=== PATIENT | male | born 2005 | race African-American/Black ===

== ENCOUNTER 2025-06-18 19:33 | Inpatient (IN) | payer MEDICAID ==
[~2025-06-18] VITALS: Ht 154.9 cm; Wt 49.9 kg
[2025-06-18 22:10] LABS: COVID AG,FIA SOURCE NASAL SWAB
[2025-06-18 22:12] LABS: PLATELET COUNT (AUTO) 238 K/uL (150-450); RED BLOOD CELL COUNT(AUTO) 4.86 MIL/uL (4.50-5.90); RED CELL DISTRIBUTION WIDTH 14.8 % (11.5-14.5); WHITE BLOOD COUNT (AUTO) 14.1 K/uL (4.5-11.0)
[2025-06-18 22:20] LABS: CALCIUM, TOTAL 9.1 mg/dL (8.8-10.5); CREATININE 1.14 mg/dL (0.60-1.30); GLOMERULAR FILTR. RATE CALC > 60 mL/min (>60); GLUCOSE,RANDOM 108 mg/dL (70-110); SODIUM SERUM 139 mmol/L (136-145); UREA NITROGEN, BLOOD 14 mg/dL (7-18)
[2025-06-18 22:21] LABS: ALCOHOL, BLOOD (SERUM) < 3 mg/dL (0-10)
[2025-06-18 22:25] LABS: ASPARTATE AMINOTRANSFERASE 127 U/L (15-37); TOTAL PROTEIN, SERUM 7.8 g/dL (6.4-8.2)
[2025-06-18 22:27] LABS: SARS-COV2 (COVID) ANTIGEN,FIA Negative (Negative)
[2025-06-19 00:33] LABS: APPEARANCE,URINE CLEAR (CLEAR); GLUCOSE, URINE (UA) NEGATIVE (NEGATIVE); LEUKOCYTE ESTERASE ,URINE NEGATIVE (NEGATIVE); NITRATE,URINE NEGATIVE (NEGATIVE); OCCULT BLOOD,URINE NEGATIVE (NEGATIVE); PH,URINE DRUG SCREEN 5.5 (5.0-8.0); SPECIFIC GRAVITIY, URINE 1.005 (1.003-1.030)
[2025-06-19 00:42] LABS: ALCOHOL, URINE DRUG SCREEN NEGATIVE (NEGATIVE); AMPHET/METH SCREEN,URINE NEGATIVE (NEGATIVE); BARBITURATE SCREEN, URINE NEGATIVE (NEGATIVE); CANNABINOID SCREEN,URINE NEGATIVE (NEGATIVE); COCAINE SCREEN,URINE NEGATIVE (NEGATIVE); METHADONE SCREEN, URINE NEGATIVE (NEGATIVE)
[2025-06-19 17:38] VITALS: BP 119/82; PULSE 94; RESP 18; TEMP 97.6; O2SAT 100
[2025-06-19 17:40] VITALS: BP 119/82; PULSE 94; RESP 18; TEMP 97.6; O2SAT 100
[2025-06-19] MEDS ORDERED: NICOTINE 14 MG/24 HOUR PATCH TD PRN (19:15)
[2025-06-19] MEDS ORDERED: ACETAMINOPHEN 325 MG TABLET PO PRN (19:15)
[2025-06-19] MEDS ORDERED: DOCUSATE SODIUM 100 MG CAPSULE PO PRN (19:15)
[2025-06-19] MEDS ORDERED: ALBUTEROL SULFATE HFA 90 MCG/PUFF 8 GM INHALER IH PRN (19:15)
[2025-06-19] MEDS ORDERED: IBUPROFEN 400 MG TABLET PO PRN (19:15)
[2025-06-19] MEDS ORDERED: MAGNESIUM HYDROXIDE SUSPENSION 30 ML UDCUP PO PRN (19:15)
[2025-06-19] MEDS ORDERED: LOPERAMIDE HCL 2 MG CAPSULE PO PRN (19:15)
[2025-06-19] MEDS ORDERED: ONDANSETRON 4 MG TABLET PO PRN (19:15)
[2025-06-19] MEDS ORDERED: MAG HYDROX/ALUMINUM HYD/SIMETH ES 30 ML SUSPENSION UDCUP PO PRN (19:15)
[2025-06-19] MEDS ORDERED: GuaiFENesin/D-METHORPHAN [SUGAR-FREE] 200-20MG/10 ML SYRUP UDCUP PO PRN (19:15)
[2025-06-19] MEDS ORDERED: PETROLATUM,WHITE 28 GM JELLY TP PRN (19:15)
[2025-06-19 22:40] VITALS: RESP 18; TEMP 97.8
[2025-06-20 08:14] LABS: PLATELET COUNT (AUTO) 206 K/uL (150-450); RED BLOOD CELL COUNT(AUTO) 4.93 MIL/uL (4.50-5.90); RED CELL DISTRIBUTION WIDTH 14.6 % (11.5-14.5); WHITE BLOOD COUNT (AUTO) 6.5 K/uL (4.5-11.0)
[2025-06-20 08:33] VITALS: BP 115/63; PULSE 99; RESP 18; TEMP 97.7; O2SAT 100
[2025-06-20 08:43] LABS: ASPARTATE AMINOTRANSFERASE 56 U/L (15-37); CALCIUM, TOTAL 8.7 mg/dL (8.8-10.5); CHOL/HDL RATIO 1.6 (4.2-7.3); CREATININE 0.84 mg/dL (0.60-1.30); GLOMERULAR FILTR. RATE CALC > 60 mL/min (>60); GLUCOSE,RANDOM 88 mg/dL (70-110); LDL CHOL (CALC.) 29 mg/dL (0-130); SODIUM SERUM 141 mmol/L (136-145); TOTAL PROTEIN, SERUM 6.9 g/dL (6.4-8.2); UREA NITROGEN, BLOOD 12 mg/dL (7-18)
[2025-06-20] MEDS: PALIPERIDONE 6 MG ER TABLET PO SCH (12:46)
[2025-06-20] MEDS: ZOLPIDEM TARTRATE 10 MG TABLET PO PRN (20:23)
[2025-06-20 23:35] VITALS: BP 120/73; PULSE 87; RESP 18; TEMP 97.8; O2SAT 99
[2025-06-21 08:41] VITALS: BP 130/79; PULSE 84; RESP 16; TEMP 98.4; O2SAT 100
[2025-06-21 20:54] VITALS: BP 120/70; PULSE 85; RESP 18; TEMP 98.1; O2SAT 98
[2025-06-22 08:37] VITALS: BP 107/81; PULSE 74; RESP 17; TEMP 98.2; O2SAT 93
[2025-06-22 20:23] VITALS: BP 112/74; PULSE 58; RESP 18; TEMP 97.9; O2SAT 99
[2025-06-23 08:41] VITALS: BP 108/66; PULSE 85; RESP 18; TEMP 97.3; O2SAT 97
[2025-06-23] MEDS ORDERED: PALI6TAB PO (15:19)
== END 2025-06-23 18:59 | disposition home or self-care (01) | DRG 750 ==
LOC: EMS 19:33 → B3A 06-19 16:46 → B2S 06-19 18:41
PROVIDERS: ADMIT Psychiatry & Neurology Child & Adolescent Psychiatry; ATTEND Psychiatry & Neurology Child & Adolescent Psychiatry
PROC: GZ56ZZZ Individual Psychotherapy, Supportive (ICD-10-PCS; 2025-06-19)
PROC: GZ58ZZZ Individual Psychotherapy, Cognitive-Behavioral (ICD-10-PCS; 2025-06-19)
PROC: GZ52ZZZ Individual Psychotherapy, Cognitive (ICD-10-PCS; principal; 2025-06-21)
DX: F20.0 Paranoid schizophrenia (principal); Z91.148 Patient's other noncompliance with medication regimen for other reason; F19.10 Other psychoactive substance abuse, uncomplicated; F41.9 Anxiety disorder, unspecified; Z20.822 Contact with and (suspected) exposure to COVID-19; G47.00 Insomnia, unspecified; Z59.00 Homelessness unspecified
CPT/HCPCS: 80048; 80053; 80061; 80076; 80307; 81003; 83036; 84436; 84443; 85025; 99285; G0480